=== PATIENT | female | born 1965 | race Asian ===

== ENCOUNTER 2023-05-18 12:29 | Emergency (ER) | payer MEDICAID ==
[~2023-05-18] VITALS: Ht 154.9 cm; Wt 58.9 kg
[2023-05-18 14:07] VITALS: BP 125/72; PULSE 96; RESP 16; O2SAT 96
[2023-05-18 14:45] VITALS: TEMP 99.6
[2023-05-18] MEDS: IBUPROFEN 800 MG TAB PO ONE (14:45)
[2023-05-18] MEDS ORDERED: METF-370 PO (15:27)
[2023-05-18] MEDS ORDERED: IBUP-1456 PO (15:27)
[2023-05-18] MEDS ORDERED: BACL10TA PO (15:38)
== END 2023-05-18 15:32 | disposition home or self-care (01) ==
LOC: ER 12:29
DX: S52.125A Nondisplaced fracture of head of left radius, initial encounter for closed fracture (principal); S39.012A Strain of muscle, fascia and tendon of lower back, initial encounter; S00.83XA Contusion of other part of head, initial encounter; Z88.0 Allergy status to penicillin
CPT/HCPCS: 29105; 70486; 72100; 73080